=== PATIENT | female | born 1950 | race Caucasian/White ===

== ENCOUNTER 2023-09-11 09:28 | Emergency (ER) | payer MEDICARE ==
[~2023-09-11] VITALS: Ht 156.2 cm; Wt 90.9 kg
[2023-09-11 09:53] LABS: BASOPHILS % (AUTO) 0.3 % (0-1); EOSINOPHILS # (AUTO) 0.1 X10'3 (0-0.9); EOSINOPHILS % (AUTO) 0.9 % (0-6); HEMATOCRIT 45.9 % (35.0-45.0); HEMOGLOBIN 15.2 g/dl (12.0-16.0); LYMPHOCYTES # (AUTO) 1.4 X10'3 (1.1-4.8); MEAN CORPUSCULAR HEMOGLOBIN 31.9 PG (27.0-31.0); MEAN CORPUSCULAR VOLUME 96.5 FL (78-98); MONOCYTES # (AUTO) 0.8 X10'3 (0-0.9); MONOCYTES % (AUTO) 6.7 % (2-12); NEUTROPHILS # (AUTO) 10.1 X10'3 (1.8-7.7); NEUTROPHILS % (AUTO) 81.1 % (42-75); PLATELET COUNT 238 X10'3 (140-440); RED BLOOD COUNT 4.76 X10'6 (4.20-5.60); RED CELL DISTRIBUTION WIDTH 13.6 % (11.5-14.5); WHITE BLOOD COUNT 12.4 X10'3 (4.5-11.0)
[2023-09-11 10:24] LABS: PRO BRAIN NATRIURETIC PEPTIDE 229 PG/ML (0-125)
[2023-09-11 10:46] LABS: ALANINE AMINOTRANSFERASE 18 U/L (12-78); ALBUMIN 3.2 G/DL (3.4-5.0); ALBUMIN/GLOBULIN RATIO 0.8 (1.1-1.5); ALKALINE PHOSPHATASE 101 IU/L (46-116); ANION GAP 7 (8-16); ASPARTATE AMINO TRANSFERASE 18 U/L (10-37); BILIRUBIN,TOTAL 0.5 MG/DL (0.1-1.0); BLOOD UREA NITROGEN 21 MG/DL (7-18); BUN/CREATININE RATIO 21.4 (10.0-20.0); CHLORIDE 103 MMOL/L (99-107); CREATININE 0.98 MG/DL (0.40-0.90); GLUCOSE 110 MG/DL (70-104); POTASSIUM 4.1 MMOL/L (3.5-5.1); SODIUM 140 MMOL/L (135-145); TOTAL CARBON DIOXIDE 29.8 MMOL/L (24-32); TOTAL PROTEIN 7.2 G/DL (6.4-8.2); eCRCL 41 ML/MIN; eGFR 56 ML/MIN
[2023-09-11 11:43] VITALS: TEMP 98.2
[2023-09-11] MEDS ORDERED: HYDROcodone/acetaminophen 5mg/325mg tablet PO ONE (13:00)
[2023-09-11 13:28] LABS: D-DIMER 0.38 MG/L FEU (0-0.50)
[2023-09-11 14:21] VITALS: PULSE 89; RESP 20; O2SAT 91
[2023-09-11] MEDS ORDERED: NAPR500T6 PO (14:45)
[2023-09-11 15:19] VITALS: BP 105/65
== END 2023-09-11 15:22 | disposition home or self-care (01) ==
LOC: ER 09:28
DX: I50.9 Heart failure, unspecified (principal); R07.89 Other chest pain; R05.9 Cough, unspecified
CPT/HCPCS: 36415; 71045; 80053; 83880; 84484; 85025; 85379; 93005; 99285

== ENCOUNTER 2023-10-27 16:27 | Observation (INO) | payer MEDICARE ==
[~2023-10-27] VITALS: Ht 154.9 cm; Wt 90.9 kg
[~2023-10-27 16:27] MED LIST: APIX5TAB3 PO; FURO-150 PO; METO-395 PO; NAPR500T6 PO
[2023-10-27 17:10] LABS: BASOPHILS % (AUTO) 0.2 % (0-1); EOSINOPHILS % (AUTO) 0.2 % (0-6); HEMOGLOBIN 15.6 g/dl (12.0-16.0); LYMPHOCYTES # (AUTO) 3.1 X10'3 (1.1-4.8); LYMPHOCYTES % (AUTO) 22.4 % (21-51); MEAN CORPUSCULAR HEMOGLOBIN 31.7 PG (27.0-31.0); MEAN CORPUSCULAR HGB CONC 33.2 g/dL (33.0-36.5); MEAN CORPUSCULAR VOLUME 95.6 FL (78-98); MEAN PLATELET VOLUME 8.8 FL (7.4-10.4); MONOCYTES # (AUTO) 1.2 X10'3 (0-0.9); MONOCYTES % (AUTO) 8.9 % (2-12); NEUTROPHILS # (AUTO) 9.4 X10'3 (1.8-7.7); NEUTROPHILS % (AUTO) 68.3 % (42-75); PLATELET COUNT 251 X10'3 (140-440); RED BLOOD COUNT 4.91 X10'6 (4.20-5.60); RED CELL DISTRIBUTION WIDTH 13.6 % (11.5-14.5); WHITE BLOOD COUNT 13.7 X10'3 (4.5-11.0)
[2023-10-27 17:34] LABS: ALANINE AMINOTRANSFERASE 15 U/L (12-78); ALBUMIN 3.2 G/DL (3.4-5.0); ALBUMIN/GLOBULIN RATIO 0.8 (1.1-1.5); ALKALINE PHOSPHATASE 92 IU/L (46-116); ANION GAP 10 (8-16); ASPARTATE AMINO TRANSFERASE 17 U/L (10-37); BILIRUBIN,TOTAL 0.9 MG/DL (0.1-1.0); BLOOD UREA NITROGEN 14 MG/DL (7-18); BUN/CREATININE RATIO 13.9 (10.0-20.0); CALCIUM 8.9 MG/DL (8.5-10.1); CHLORIDE 103 MMOL/L (99-107); CREATININE 1.01 MG/DL (0.40-0.90); GLUCOSE 108 MG/DL (70-104); POTASSIUM 4.2 MMOL/L (3.5-5.1); SODIUM 140 MMOL/L (135-145); TOTAL CARBON DIOXIDE 27.4 MMOL/L (24-32); eCRCL 39 ML/MIN; eGFR 54 ML/MIN
[2023-10-27 17:42] LABS: PRO BRAIN NATRIURETIC PEPTIDE 2840 PG/ML (0-125)
[2023-10-27 19:35] VITALS: TEMP 98.8
[2023-10-27 20:11] LABS: MAGNESIUM 1.8 MG/DL (1.5-2.4)
[2023-10-27] MEDS: aspirin 81mg tab.chew PO ONE (20:24)
[2023-10-27] MEDS: nitroGLYCERIN 1gm ointment UD TP ONE (20:24)
[2023-10-28 00:51] LABS: BILIRUBIN,URINE SMALL (Neg); CLARITY,URINE CLEAR (Clear); GLUCOSE, URINE NEGATIVE (Neg); KETONES,URINE NEGATIVE (Neg); LEUKOCYTE ESTERASE ,URINE NEGATIVE (Neg); NITRITES, URINE NEGATIVE (Neg); OCCULT BLOOD,URINE NEGATIVE (Neg); PH,URINE 5.5 (4.8-8.0); PROTEIN,URINE NEGATIVE (Neg); UROBILINOGEN,URINE 0.2 E.U/dL (0.2-1.0)
[2023-10-28 00:52] LABS: COLOR,URINE DARK YELLOW (Yellow); UA COLLECTION TYPE CLN CATCH MIDSTREAM
[2023-10-28] MEDS ORDERED: mag hydrox/Alum hydrox/simeth 30ml oral suspension PO PRN (03:10)
[2023-10-28] MEDS ORDERED: magnesium Cl slow-release 64mg tablet PO PRN (03:10)
[2023-10-28] MEDS ORDERED: HYDROcodone/acetaminophen 5mg/325mg tablet PO PRN (03:10)
[2023-10-28] MEDS ORDERED: potassium Cl 40MEQ/1/2NS 520ml 520 ML IV PRN (03:10)
[2023-10-28] MEDS ORDERED: potassium Cl 20 mEq SR tablet PO PRN ×2 (03:10)
[2023-10-28] MEDS ORDERED: magnesium 2GM in 50ml NS 50 ML IV PRN (03:10)
[2023-10-28] MEDS ORDERED: magnesium hydroxide 30ml (MOM) UD suspension PO PRN (03:10)
[2023-10-28] MEDS ORDERED: magnesium 4gm in 100ml NS 100 ML IV PRN (03:10)
[2023-10-28] MEDS ORDERED: ondansetron/PF 4mg/2ml inj IV PRN (03:10)
[2023-10-28] MEDS ORDERED: acetaminophen 325mg tablet PO PRN ×2 (03:10)
[2023-10-28 07:00] VITALS: BP 108/58; PULSE 76; RESP 18; O2SAT 92
[2023-10-28] MEDS: K and/or MAG REPLACEMENT MC SCH (08:00)
[2023-10-28] MEDS: metoprolol succinate 25mg (24-HOUR) SR. Tablet PO SCH (08:23)
[2023-10-28] MEDS: apixaban 5mg tablet PO SCH (08:23)
[2023-10-28] MEDS: furosemide 20MG tablet PO SCH (08:23)
[2023-10-28] MEDS ORDERED: PANT-47 PO (10:26)
== END 2023-10-28 10:00 | disposition home or self-care (01) ==
LOC: ER 16:28 → ED HOLD 10-28 03:15
PROVIDERS: ADMIT Internal Medicine Critical Care Medicine; ATTEND Family Medicine
DX: I48.20 Chronic atrial fibrillation, unspecified (principal); N18.32 Chronic kidney disease, stage 3b; Z85.3 Personal history of malignant neoplasm of breast; Z79.01 Long term (current) use of anticoagulants; Z79.899 Other long term (current) drug therapy
CPT/HCPCS: 36415; 71045; 80053; 81003; 83735; 83880; 84484; 85025; 85379; 93005; 99285; G0378; A4615

== ENCOUNTER 2025-04-30 11:56 | Emergency (ER) | payer MEDICARE ==
[~2025-04-30] VITALS: Ht 154.9 cm; Wt 90.9 kg
[~2025-04-30 11:56] MED LIST changes: -FURO-150 PO; -NAPR500T6 PO; +PANT-47 PO
--- NOTE | 2025-04-30 12:03 | Physician Documentation ---
History of Present Illness General Stated Complaint: ARM LAC Time Seen by MD: 12:01 History of Present Illness Initial Comments THE PATIENT IS A 74-YEAR-OLD FEMALE COMPLAINS OF LEFT POSTERIOR ARM LACERATION. The patient was brought in by EMS after being bit by a dog at a [email or web address] sale. P atient states the dog's receiving clerk was present and the dog has a history of not liking people. Patient denies any numbness or weakness to the hand she denies any recent illness no fevers chills or nausea patient had significant bleeding that was controlled with direct pressure in the field. The patient does take Coumadin for atrial fibrillation. Medication Reconciliation Allergies: Coded Allergies: No Known Allergies (Unverified , 09/11/23) Scheduled Amox Tr/Potassium Clavulanate 875/125 MG (Augmentin 875/125 MG), 1 TAB PO BID Apixaban (Eliquis), 5 MG PO BID Metoprolol Succinate (Metoprolol Succinate), 25 MG PO DAILY Pantoprazole Sodium (PROTONIX tablet), 40 MG PO BKF Past Medical History Past Medical History: Atrial Fibrillation, *CANCER*, Breast Cancer Past Surgical History: other Other Past Surgical History: Lumpectomy 1997 Smoking: Non-Smoker Alcohol Use: Occasionally Drug Use: none Lives with: Family Lives In: Home Occupation: retired, other Physical Exam Physical Exam General Appearance VITALS: Reviewed and as above. GENERAL: Alert, no apparent distress. HEENT: Normocephalic, atraumatic, PERRL, EOMI, dry mucosa, no erythema RESPIRATORY: Lungs clear, normal breath sounds, no respiratory distress. CHEST: No accessory muscle use, no retractions CV: Regular rate, rhythm, no edema, no murmur, No: JVD GI: Soft, non-tender, bowels sounds present, no rebound, guarding, or rigidity BACK: No CVA tenderness, or swelling MUSCULOSKELETAL: No deformities, no edema SKIN: Patient has a semi circular inverted u shaped laceration that is 10 cm long to the left mid lateral upper arm, she also has a 2 cm laceration to the proximal left forearm she also has a 2 cm superficial superficial avulsion to the lateral proximal forearm no deep structures appreciated to be involved full range of motion of the extremity neurovascularly intact NEURO: Oriented x4, No motor or sensory deficit PSYCH: Normal mood and affect, no agitation Progress Results/Orders Results/Orders Orders - JESSA BERRIOS MD Humerus (2vws) (04/30/25 12:05) Laceration/I&D Tray Set Up (04/30/25 12:33) General Nursing Order (04/30/25 12:33) Completed Orders - JESSA BERRIOS MD Humerus (2vws) (04/30/25 12:05) Lidocaine 1% W/Epi 1:100,000 (Xylocaine (04/30/25 12:35) Amox Tr/Potassium Clavulanate (Augmentin (04/30/25 13:25) Tetanus/Pertuss/Diph Acell/Pf (Boostrix (04/30/25 14:15) Vital Signs 04/30/25 04/30/25 12:01 15:01 Temp 97.6 97.6 Pulse 77 16 Resp 24 18 B/P (MAP) 120/82 110/78 Pulse Ox 96 99 EKG/XRAY/CT/US/VASC/MRI Bone/Soft Tissue X-Ray (Ext.) : Additional Comment Patient: RAYNE EVERETT Medical Record: [id number] [facility] 1950, Age: 74 Sex: Female Location: ER Patient Status: REG ER Service Date/Time: 04/30/251204 Ordering Physician: JESSA BERRIOS MD Exam: HUMERUS (2VWS) EXAM: DI HUMERUS (2VWS) CLINICAL INDICATION: dog bite poss open fx TECHNIQUE: DI HUMERUS (2VWS), 3v Comparison: None FINDINGS/IMPRESSION: There is no evidence of acute fracture or dislocation. The visualized joint space is well maintained. The alignment is anatomical. There is no radiopaque foreign body. Electronically Signed by:TRA SUERO MD Date & Time: 04/30/251356 Dictated by: TRA SUERO MD Dictation date and time: 04/30/251356 Primary Care Provider: NO PRIMARY CARE PROVIDER cc: JESSA BERRIOS MD ~ Medical Decision Making Findings The patient received copious irrigation after being infiltrated with 1% lidocaine of her total of 20 cc. The patient was sutured she had two sutures placed in her 2 cm laceration and she had 14 sutures placed in her upper arm laceration they were all simple interrupted sutures she tolerated the procedure well the patient was given a dose of Augmentin she will be given a tetanus shot she will be discharged on Augmentin she has been told to have the sutures removed in 10-14 days pulse oximetry was interpreted as adequate normal her plain film x-ray was reviewed by me it showed no normal bony alignment no significant soft tissue swelling and no foreign body interpreted as a normal plain film x-ray I have reviewed the radiologist's interpretation her pulse oximetry was interpreted as normal and adequate. Departure Disposition: HOME / SELF CARE / HOMELESS Impression: Primary Impression: Dog bite Qualified Codes: W54.0XXA - Bitten by dog, initial encounter Additional Impression: Arm laceration Qualified Codes: S41.112A - Laceration without foreign body of left upper arm, initial encounter Discharge Instructions: Animal Bite, Adult, Laceration Care, Adult Additional Instructions: You had 16 sutures placed have these sutures removed in 10-14 days. Return for redness swelling fevers or worsening of her symptoms. Referrals: NO PRIMARY CARE PROVIDER (PCP) Prescriptions Amox Tr/Potassium Clavulanate 875/125 MG (Augmentin 875/125 MG) 875 Mg-125 Mg Tablet 1 TAB PO BID, #14 TAB Prov: JESSA BERRIOS MD 04/30/25 Signature Scribe Signature: no scribe Attestation: The note accurately reflects work and decisions made by me.Jessa Berrios MD 05/03/25 11:58 JESSA BERRIOS MD Apr 30, 2025 12:03
[2025-04-30] MEDS: LIDOcaine 1% W/epiNEPHrine 1:100,000 20ml vial IJ ONE (13:22)
[2025-04-30] MEDS ORDERED: AMOX-580 PO (13:41)
--- NOTE | 2025-04-30 14:00 | RADIOLOGY REPORT ---
EXAM: DI HUMERUS (2VWS) CLINICAL INDICATION: dog bite poss open fx TECHNIQUE: DI HUMERUS (2VWS), 3v Comparison: None FINDINGS/IMPRESSION: There is no evidence of acute fracture or dislocation. The visualized joint space is well maintained. The alignment is anatomical. There is no radiopaque foreign body.
[2025-04-30] MEDS: amox tr/potassium clavulanate 875/125mg TAB PO ONE (14:54)
[2025-04-30] MEDS: TETanus/Pertussis (Acell)/Diphther VAC/PF (Tdap-Adult) 0.5ml syringe IMVAC ONE (14:55)
[2025-04-30 15:01] VITALS: BP 110/78; PULSE 16; RESP 18; TEMP 97.6; O2SAT 99
== END 2025-04-30 15:05 | disposition home or self-care (01) ==
LOC: ER 11:57
DX: S51.812A Laceration without foreign body of left forearm, initial encounter (principal); I48.91 Unspecified atrial fibrillation; W54.0XXA Bitten by dog, initial encounter; Y93.89 Activity, other specified; Y92.89 Other specified places as the place of occurrence of the external cause; Y99.8 Other external cause status
CPT/HCPCS: 12005; 73060; 90715; 99283; A6258; A6402; A6449; G0008; J3490; J7030; Z7610; 90471

== ENCOUNTER 2025-05-09 17:32 | Emergency (ER) | payer MEDICARE ==
[~2025-05-09] VITALS: Ht 152.4 cm; Wt 98.0 kg
[~2025-05-09 17:32] MED LIST changes: +AMOX-580 PO
[2025-05-09 17:36] VITALS: BP 108/69; PULSE 76; RESP 18; TEMP 98; O2SAT 96
--- NOTE | 2025-05-09 18:18 | Physician Documentation ---
History of Present Illness ~ Chief Complaint: Wound Re-Check Stated Complaint: STITCH REMOVAL Time Seen by MD: 17:48 Primary Medical Doctor: Jules GARNER Patient is seen today with complaints of having been bitten by a dog nine days ago and had sutures placed shortly after in his now nine days out from suture repair. She states she was on antibiotics for seven days and is here today for suture removal and wound check. Patient states that she feels as though the wound has become slightly more erythematous since she stopped the antibiotic. Patient is states it is also little more swollen since she stopped the antibiotic. She has no other concern or complaint at this time. She denies any fever or chills. Tetanus within 5 years?: Yes Medication Reconciliation Allergies: Coded Allergies: No Known Allergies (Unverified , 05/09/25) Scheduled Amox Tr/Potassium Clavulanate 875/125 MG (Augmentin 875/125 MG), 1 TAB PO BID Apixaban (Eliquis), 5 MG PO BID Metoprolol Succinate (Metoprolol Succinate), 25 MG PO DAILY Pantoprazole Sodium (PROTONIX tablet), 40 MG PO BKF Past Medical History Past Medical History: Atrial Fibrillation, *CANCER*, Breast Cancer Past Surgical History: other Other Past Surgical History: Lumpectomy 1997 Patient History: FH: atrial fibrillation (Sister) Fam hx-ischem heart disease (Father) Alcohol Use: Occasionally Drug Use: none Lives with: Family Lives In: Home Occupation: retired, other Review of Systems Constitutional: Denies: chills, fever, weakness Eyes: Denies: pain, blurred vision ENT: Denies: ear pain, nose pain, throat pain, mouth pain Respiratory: Denies: cough, shortness of breath Cardiovascular: Denies: chest pain, palpitations Gastrointestinal: Denies: abdominal pain, nausea, vomiting Genitourinary: Denies: burning, dysuria Female Genitalia: Denies: vaginal discharge, pelvic pain Neurological: Denies: headache, dizziness Musculoskeletal: Denies: pain, swelling Integumentary: Denies: rash, lesions Allergic/Immunologic: Denies: hives, itching Hematologic/Lymphatic: Denies: no symptoms reported Psychiatric: Denies: depression, anxiety Physical Exam Vital Signs: Temperature: 98.0, Source: Oral, Heart Rate: 76, Respiratory Rate: 18, BP: 108/69, Pulse Oximetry: 96, Weight: 98.000 Oxygen Flow Rate: 0 Physical Exam General: Awake and Alert, no acute distress. HEENT: Conjunctiva pink, Sclera clear, Mucus Membranes moist. Neck: Supple without masses and tenderness. Resp: Unlabored. Lungs clear to auscultation bilaterally. Heart: Regular Rate and rhythm, normal S1 and S2 without murmur, rub or gallop. Abdomen: Soft and non tender no organomegaly Extremities: No cyanosis,clubbing or edema. Skin: Patient does have wound or healing wound that has sutures in place involving the left upper arm distally. There is surrounding erythema and induration with some mild tenderness to palpation. There is no purulent drainage at this time. Wound appears to be well healed. Progress Results/Orders Results/Orders Vital Signs 05/09/25 17:36 Temp 98.0 Pulse 76 Resp 18 B/P (MAP) 108/69 Pulse Ox 96 O2 Flow Rate 0 Medical Decision Making Findings Patient is seen today with complaints of having been bitten by a dog nine days ago and had sutures placed shortly after in his now nine days out from suture repair. She states she was on antibiotics for seven days and is here today for suture removal and wound check. Patient states that she feels as though the wound has become slightly more erythematous since she stopped the antibiotic. Patient is states it is also little more swollen since she stopped the antibiotic. She has no other concern or complaint at this time. She denies any fever or chills. Patient did have sutures removed and Steri-Strips placed. Patient will be restarted on Augmentin 875/125 mg one tab twice a day for seven more days. Patient will return for wound check in 3-5 days or sooner as needed. Patient will follow up with primary care or return to the ED with any worsening, concerning or changing symptoms. Departure Disposition: 01 HOME / SELF CARE / HOMELESS Impression: Primary Impression: Wound Additional Impression: Cellulitis Qualified Codes: L03.114 - Cellulitis of left upper limb Condition: Stable Discharge Instructions: Wound Care, Adult Additional Instructions: Patient did have sutures removed and Steri-Strips placed. Patient will be restarted on Augmentin 875/125 mg one tab twice a day for seven more days. Patient will return for wound check in 3-5 days or sooner as needed. Patient will follow up with primary care or return to the ED with any worsening, concerning or changing symptoms. Referrals: NO PRIMARY CARE PROVIDER (PCP) Prescriptions Amox Tr/Potassium Clavulanate (Augmentin 875-125 Tablet) 1 Each Tablet 1 TAB PO Q12H for 7 Days, #14 TAB Prov: VANESSA PETIT 05/09/25 Signature Scribe Signature: No scribe Attestation: No scribe VANESSA PETIT PAC May 09, 2025 18:18
[2025-05-09] MEDS ORDERED: AMOX-117 PO (18:29)
[2025-05-09] MEDS: amox tr/potassium clavulanate 875/125mg TAB PO STA (18:57)
== END 2025-05-09 19:02 | disposition home or self-care (01) ==
LOC: ER 17:32
DX: S51.012D Laceration without foreign body of left elbow, subsequent encounter (principal); L03.114 Cellulitis of left upper limb; Z85.3 Personal history of malignant neoplasm of breast; Z48.02 Encounter for removal of sutures; Z98.890 Other specified postprocedural states; X58.XXXD Exposure to other specified factors, subsequent encounter
CPT/HCPCS: 99283; A6258; A6449